=== PATIENT | female | born 1960 | race Hispanic/Latino ===

== ENCOUNTER 2021-12-24 05:46 | Day surgery (SDC) | payer BC, OTHER, SELFPAY ==
[2021-12-19 09:56] LABS: EOSINOPHILS % (AUTO) 2.2 % (0.0-8.0); HEMATOCRIT 39.4 % (36-48); LYMPHOCYTES % (AUTO) 30.8 % (21.0-51.0); MEAN CORPUSCULAR HEMOGLOBIN 30.7 pg (27.0-33.0); MEAN CORPUSCULAR VOLUME 92.9 fL (79-99); MONOCYTES % (AUTO) 9.9 % (3.0-13.0); PLATELET COUNT (AUTO) 146 K/uL (130-400); RED BLOOD CELL COUNT(AUTO) 4.24 MIL/uL (4.00-5.50); RED CELL DISTRIBUTION WIDTH 12.5 % (11.0-15.5); WHITE BLOOD COUNT (AUTO) 3.6 K/uL (4.8-10.8)
[2021-12-19 09:57] LABS: BASOPHILS % (AUTO) 0.8 % (0.0-5.0)
[2021-12-19 09:59] VITALS: BP 173/88
[2021-12-19 10:14] LABS: CREATININE 0.7 mg/dL (0.5-1.5); POTASSIUM 4.6 mmol/L (3.5-5.1)
[~2021-12-24] VITALS: Ht 160 cm; Wt 67.5 kg
[2021-12-24] VITALS (11 sets, daily range): BP systolic 123–153; BP diastolic 63–90
[~2021-12-24 05:46] MED LIST: IRON PO; LATA7.5D OP; MV-M1TAB20 PO; VITAMIN C PO
[2021-12-24] MEDS ORDERED: LACTATED RINGERS 1000ML 1,000 ML IV ONE (06:11)
[2021-12-24] MEDS: CEFAZOLIN SODIUM 1 GM VIAL ONE ×2 (06:44→07:30)
[2021-12-24] MEDS ORDERED: LIDOCAINE HCL MDV 0.5% 50ML VIAL IJ ONE (06:56)
[2021-12-24] MEDS ORDERED: FENTANYL CITRATE PF 50 MCG/1 ML 2ML VIAL ONE (06:57)
[2021-12-24] MEDS ORDERED: MIDAZOLAM HCL 1 MG/ML 2ML VIAL ONE ×2 (06:57→07:54)
[2021-12-24] MEDS ORDERED: PROPOFOL 10 MG/ML 20ML VIAL IV ONE (06:59)
[2021-12-24] MEDS ORDERED: ONDANSETRON 4MG INJ ONE (07:57)
[2021-12-24] MEDS ORDERED: MEPERIDINE-PF 25 MG/ML SYG ONE (08:27)
== END 2021-12-24 09:35 | disposition home or self-care (01) ==
LOC: DAH 05:46
PROVIDERS: ATTEND Neurological Surgery
DX: G56.01 Carpal tunnel syndrome, right upper limb (principal); Z90.710 Acquired absence of both cervix and uterus
CPT/HCPCS: 80048; 85025; 87426; 36415; 64721; A6260; A4663; J7120; J3010; J0690; J2250 ×2; J2405; J2175; J3490; A4215; A4222; A4223 ×2; A4221; J2704

== ENCOUNTER → 2024-06-26 | Outpatient (CLI) | payer OTHER ==
--- NOTE | 2024-06-26 09:30 | HMCIMG ---
CT calcium scoring Clinical Information: [facility] SCREENING Comparison: None CT Dose Index (CTDI): 13.30 mGy Dose Length Product (DLP): 186.18 total mGy-cm Findings: Calcium score 3.8. Minimal identifiable calcification. The CT scan is not a complete chest CT. Covered portion is reviewed for incidental findings. No incidental findings seen. IMPRESSION: Calcium score as above. Calcium score reference stable: 0: No identifiable calcification 1- 10: Minimal identifiable calcification 11-100: Mild calcification 101- 400: Moderate calcification 401 and above: Significant calcification Automated exposure control and adequate statistical iterative reconstructions were utilized as dose reduction techniques.
== END | disposition home or self-care (01) ==
LOC: RAH 08:55
PROVIDERS: ATTEND Family Medicine
DX: Z13.6 Encounter for screening for cardiovascular disorders (principal)
CPT/HCPCS: 75571